=== PATIENT | male | born 1935 | race Caucasian/White ===

== ENCOUNTER 2020-12-15 13:57 | Observation (INO) | payer MEDICARE, MEDICAID ==
[~2020-12-15] VITALS: Ht 167.6 cm; Wt 76.0 kg
[~2020-12-15 13:57] MED LIST: AMLODIPINE5 MG PO; BACTRIM DS1 TAB PO; BACTROBAN TOP; BENAZEPRIL5 MG PO; CIPRO500 MG PO; FLONASE AL50 MCG/ACT; FLUARIX QUADRIV1 IN2 IM; KEFLEX500 MG PO; NO; NO HOME MEDS; ULTRAM50 M1 PO; VITAMIN B-121000 MCG PO; [UNRECOGNIZED DRUG - OTHER] EX
--- NOTE | 2020-12-15 14:00 | NUR ---
PT TO ROOM 15 VIA WHEELCHAIR. BEDSIDE TRIAGE COMPLETED
[2020-12-15 14:48] LABS: HEMATOCRIT 46.2 % (39.0-50.0); HEMOGLOBIN 14.5 g/dl (14.0-18.0); IMMATURE GRANULOCYTES 0.3 % (0.0-5.0); MEAN CELL VOLUME 91.3 fL CALC (80.0-100.0); MEAN CORPUSCULAR HGB 28.7 pG CALC (26.0-32.0); MEAN CORPUSCULAR HGB CONC 31.4 g/dL CAL (32.0-36.0); NEUT# 11.28 thou/uL (1.82-7.42); RED BLOOD COUNT 5.06 mill/uL (4.70-6.10); RED CELL DISTRI WIDTH 14.6 % (11.5-15.5)
--- NOTE | 2020-12-15 14:59 | NUR ---
two sets of blood cultures drawn.
[2020-12-15 15:04] LABS: ALBUMIN 4.1 g/dL (3.2-5.0); ALKALINE PHOSPHATASE 66 u/l (38-126); ANION GAP 15 (6-22 (CALC)); BUN 17 mg/dL (8-23); BUN/CREATININE RATIO 15 (12-20 (CALC)); CARBON DIOXIDE 27 mmol/l (22-30); CHLORIDE 98 mmol/l (95-108); CREATININE 1.1 mg/dL (0.7-1.3); GFR > 60 ML/MIN (>=60 (CALC)); GFR FOR AFR.AMER. > 60 ML/MIN (>=60 (CALC)); LIPASE 64 u/l (23-300); POTASSIUM 4.7 mmol/l (3.5-5.1); SGOT/AST 37 u/l (19-48); SODIUM 135 mmol/l (137-146); TOTAL PROTEIN 7.9 g/dL (6.3-8.2)
[2020-12-15 15:11] LABS: ACT PARTIAL THROMBO TIME 27.9 SECONDS (20.0-32.5); INTERNATIONAL NORMALIZED RATIO 1.1 RATIO (0.7-1.3); PROTHROMBIN TIME 11.3 SECONDS (9.0-12.5)
[2020-12-15 15:17] LABS: BILIRUBIN, TOTAL 1.3 mg/dL (0.0-1.4)
[2020-12-15] MEDS ORDERED: SERTRALINE50 MG PO (15:21)
[2020-12-15] MEDS ORDERED: MEGESTROL AC20 MG PO (15:22)
[2020-12-15] MEDS ORDERED: CYPROHEPTAD4 MG PO (15:23)
--- NOTE | 2020-12-15 17:01 | NUR ---
SBAR PRINTED TO FLOOR
[2020-12-15 18:00] VITALS: BP 114/70
--- NOTE | 2020-12-15 18:05 | NUR ---
PATIENT RECEIVED FROM ED AT THIS TIME. PATIENT IS CONFUSED AND ONLY ALERT TO NAME BUT WILL FOLLOW COMMANDS. PATIENT INCONTIENT OF CLEAR YELLOW URINE AT THIS TIME SKIN IS SCALY BUT NO OPEN WOUNDS NOTED. 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 APPLIED ANTHROPOLOGIST DONE LUNG RODRIGUEZ IN UPPER ARE CLEAR AND LOWER RODRIGUEZ DIMINISHED. PATIENT HAS NON-PRODUCTIVE COUGH NOTED ON ADMISSION. 02 ON AT 2 LITERS AND SPO2 IS 96%. PATIENT IS ON TELE AND CURRENTLY READING AFIB-93 HEART RATE. BP AT TIME OF ADMISSION IS 114/70. PATIENT WHEN ASKED IF HE HAS PAIN STATES "NO". CALL LIGHT IS WITHIN REACH SIDERAILS UP X 2 BEDALARM ACTIVATED AT THIS TIME.
[2020-12-15 19:40] VITALS: BP 117/69
--- NOTE | 2020-12-15 20:18 | NUR ---
PT MEDICATED ORDERS PROVIDE. PT IS EATING HIS DINNER TRAY, JUST BROUGHT UP FROM ED. SPORTS NUTRITIONIST SET IT UP FOR HIM. PT DENIES DISTRESS AT THIS TIME. I ASSISTED HIM ADJUSTING THE TV FOR VOLUME AND REORIENTED HIM TO THE CALL LIGHT SYSTEM. PT LEFT IN HIGH FOWLERS EATING AND WATCHING TV.
--- NOTE | 2020-12-15 21:00 | NUR ---
PT SLEEPING, I ASKED IF HE WANTED MORE OF HIS DINNER, HE ATE SMALL AMOUNT, HE NODDED YES SO I ASSISTED HIM TO EAT, I ENCOURAGED HIM TO FEED HIMSELF, BUT HE DID NOT CONTINUE ON HIS OWN.
[2020-12-15 23:56] VITALS: BP 121/76
--- NOTE | 2020-12-16 02:28 | NUR ---
PT IS SLEEPING, NO S/O DISTRESS NOTED.
[2020-12-16 05:02] VITALS: BP 110/69
[2020-12-16 05:53] LABS: ANION GAP 13 (6-22 (CALC)); BUN 17 mg/dL (8-23); BUN/CREATININE RATIO 16 (12-20 (CALC)); CARBON DIOXIDE 29 mmol/l (22-30); CHLORIDE 98 mmol/l (95-108); CREATININE 1.1 mg/dL (0.7-1.3); GFR > 60 ML/MIN (>=60 (CALC)); GFR FOR AFR.AMER. > 60 ML/MIN (>=60 (CALC)); POTASSIUM 3.9 mmol/l (3.5-5.1); SODIUM 135 mmol/l (137-146)
[2020-12-16 07:01] VITALS: BP 109/73
--- NOTE | 2020-12-16 07:18 | NUR ---
SHIFT CHANGE REPORT, PT SLEEPING AND SNORING, O2 @ 2L VIA C IN PLACE, TELE MONITOR IN PLACE, BREATHING ENEN AND NON-LABORED, NO SIGN DISCOMFORT, CALL MORENO IN REACH.
--- NOTE | 2020-12-16 09:29 | NUR ---
Patient is screened for rehab intervention and it is felt he may benefit from PT and ST consults
--- NOTE | 2020-12-16 09:31 | NUR ---
AWAKE AND ALERT, ATE MEAL AND HAD AM BED BATH. INFORMED PF PROCEDURE, ASSISTED TO W/C AND TRANSPORTED OFF UNIT FOR PROCEDURE @ 0912, JUST RETURNED TO UNIT AND ASSISTED TO BED, CALL MORENO IN REACH.
[2020-12-16 10:38] VITALS: BP 123/77
--- NOTE | 2020-12-16 12:30 | NUR ---
CONSULT WITH ANDROID IOS DEVELOPER TODAY TO DISCUSS CONCERNS WITH MEALS, CONSISTENCY CHANGED TO SOFT MECHANICAL SOFT PT IS ENDENTULOUS, WILL CONTINUE TO MONITOR.
--- NOTE | 2020-12-16 12:44 | NUR ---
SITTING IN HIGH FOWLERS POSITION IN BED, SET UP FOR MEAL BUT FALLS ASLEEP BETWEEN MOUTHFULS AND HAS TO BE AWAKENED AND REORIENTED, ABLE TO FEED SELF WITH CONTINUOUS SUPERVISION.
[2020-12-16 14:50] VITALS: BP 102/68
--- NOTE | 2020-12-16 15:32 | NUR ---
RESTING IN SUPINE POSITION, VISITOR CAME AND LEFT, SLEEPING BUT AROUSES TO VERBAL STIMULI AND RESPONDS TO COMMANDS, CALL MORENO IN REACH.
--- NOTE | 2020-12-16 19:15 | NUR ---
PT RESTING QUIETLY WITH EYES CLOSED, PT NOTED TO HAVE SHALLOW BREATHING, NO S/S OF DISTRESS NOTED. O2 @ 2L VIA NC CONTINUES. IV SITE REMAINS TO LFA, FLUSHES EASILY. AROUSES TO VOICE BUT FALLS BACK TO SLEEP. WILL MONITOR.
[2020-12-16 20:00] VITALS: BP 105/68
--- NOTE | 2020-12-16 22:43 | NUR ---
PT DOING WELL THIS EVENING, BREATHING EVEN AND UNLABORED, NO C/O PAIN AT THIS TIME. IV REMAINS TO LAC # 20, FLUSHES EASILY, SALINE LOCKED. PT RECEIVED SQ LOVENOX PER ORDER, TOLERATED WELL. NO SKIN CONCERNS NOTED AT THIS TIME. PT IS ALERT AND ORIENTED X1 ONLY. AROUSABLE TO VOICE BUT FALLS ASLEEP QUICKLY. WILL MONITOR.
[2020-12-17] VITALS: BP 141/79
--- NOTE | 2020-12-17 00:48 | NUR ---
PT RESTING QUIETLY IN BED WITH EYES CLOSED, NO COMPLAINTS AT THIS TIME. NO S/S OF DISTRESS. BREATHING REMAINS EVEN AND UNLABORED. WILL MONITOR.
[2020-12-17 04:00] VITALS: BP 118/76
--- NOTE | 2020-12-17 04:26 | NUR ---
PT RESTING QUIETLY. BREATHING EVEN AND UNLABORED. NO COMPLAINTS VOICED. NO S/S OF DISTRESS. BED IN LOWEST POSITION, CALL LIGHT WITHIN REACH. FREQUENT ROOM CHECKS TO MONITOR FOR SAFETY. WILL CONTINUE TO MONITOR.
[2020-12-17 05:24] LABS: HEMATOCRIT 44.7 % (39.0-50.0); MEAN CORPUSCULAR HGB 28.8 pG CALC (26.0-32.0); MEAN CORPUSCULAR HGB CONC 31.3 g/dL CAL (32.0-36.0); RED BLOOD COUNT 4.86 mill/uL (4.70-6.10); RED CELL DISTRI WIDTH 14.6 % (11.5-15.5)
[2020-12-17 05:41] LABS: ALBUMIN 3.6 g/dL (3.2-5.0); ALKALINE PHOSPHATASE 63 u/l (38-126); ANION GAP 13 (6-22 (CALC)); BILIRUBIN, TOTAL 0.8 mg/dL (0.0-1.4); BUN 17 mg/dL (8-23); BUN/CREATININE RATIO 18 (12-20 (CALC)); CARBON DIOXIDE 28 mmol/l (22-30); CHLORIDE 100 mmol/l (95-108); GFR > 60 ML/MIN (>=60 (CALC)); GFR FOR AFR.AMER. > 60 ML/MIN (>=60 (CALC)); POTASSIUM 4.1 mmol/l (3.5-5.1); SGOT/AST 30 u/l (19-48); SODIUM 138 mmol/l (137-146); TOTAL PROTEIN 6.9 g/dL (6.3-8.2)
[2020-12-17 07:49] VITALS: BP 116/77
--- NOTE | 2020-12-17 08:00 | NUR ---
PATIENT IS RESTING IN BED IN SEMI-LEON. PATIENT ALERT TO SELF. PATIENT REQUESTED WATER. PO FLUIDS PROVIDED. NO S/S OF DISTRESS NOTED. O2 AT 2L VIA NC. TELE IN PLACE. PATIENT DENIES ANY OTHER NEEDS. CALL LIGHT IN REACH AND BED ALARM IN PLACE.
[2020-12-17 10:58] VITALS: BP 104/57
--- NOTE | 2020-12-17 12:45 | NUR ---
PATIENT IS RESTING IN BED WITH NO S/S OF DISTRESS NOTED. CALL LIGHT IN REACH.
[2020-12-17 14:45] VITALS: BP 102/72
--- NOTE | 2020-12-17 15:52 | NUR ---
PATIENT IS SITTING IN THE RECLINER DRINKING SODA. PATIENT DENIES NEEDS AT THIS TIME. CALLL LIGHT IN REACH.
--- NOTE | 2020-12-17 19:00 | NUR ---
pt in recliner chair eating supper and able to make needs known. respiration even and non labored. pt has oxygen therapy in place at 2ln[facility]. will continue to observe
[2020-12-17 20:00] VITALS: BP 123/75
[2020-12-18] VITALS: BP 125/84
--- NOTE | 2020-12-18 | NUR ---
PT IN BED WITH EYES CLOSED WITH NO S/S OF DISTRESS NOTED. MEDICATIONS GIVEN AND TOLERATED WELL. OXYGEN THERAPY CONTINUES IN PLACE WITH NO RESPIRATORY DISTRESS NOTED. CALL LIGHT IS WITHIN REACH. WILL CONTINUE TO OBSERVE.
[2020-12-18 04:00] VITALS: BP 127/74; BP 127/84
--- NOTE | 2020-12-18 04:20 | NUR ---
PT IN BED WTH EYES CLOSED. NO S/S OF DITRESS NOTED. EASILY AROUSED. INCONTINENCE CARE PROVIDED AND PT WAS REPOSITIONED IN BED. HOB ELEVATED AND CALL LIGHT IS WITHIN REACH. WILL CONTINUE TO OBSERVE.
[2020-12-18 07:23] VITALS: BP 129/82
--- NOTE | 2020-12-18 07:26 | NUR ---
PATIENT IS IN SEMI-FOWLERS IN BED RESTING. ASSESSMENT DONE.PATIENT IS ALERT TO SELF. PATIENT STATED PAIN IN BACK. MEDICATED PATIENT WITH TYLENOL. WATER PROVIDED. O2 AT 2L VIA NC. LUNGS SOUND DIMINISHED/COARSE. TELE IN PLACE. DENIES ANY OTHER NEEDS AT THIS TIME. BED ALARM IN PLACE AND CALL LIGHT IN REACH.
[2020-12-18 10:56] VITALS: BP 105/65
[2020-12-18] MEDS ORDERED: AMLODIPINE BESYL5 MG PO (11:08)
[2020-12-18] MEDS ORDERED: ZPAK PO (11:10)
--- NOTE | 2020-12-18 11:45 | NUR ---
PATIENT IS EATING HIS LUNCH WITH NO S/S OF DISTRESS NOTED. PATIENT DENIES NEEDS CALL LIGHT IN REACH.
--- NOTE | 2020-12-18 12:15 | NUR ---
REPORT GIVEN TO MADELIN.
--- NOTE | 2020-12-18 14:34 | NUR ---
Discharge instructions given. Patient verbalizes understanding of same. Discharged in stable condition via Wheelchair to [facility] with staff. All belongings sent with pt.
--- NOTE | 2020-12-18 14:44 | NUR ---
CALL SON TO COME BACK TO [employer]. HE SAID HE WILL BE COMING.
== END 2020-12-18 14:34 | disposition home or self-care (01) ==
LOC: ED 13:57 → ED-I 16:37 → ED 16:52 → MS2 16:53
PROVIDERS: ADMIT Internal Medicine; ATTEND Internal Medicine
DX: J18.9 Pneumonia, unspecified organism (principal); R09.02 Hypoxemia; I11.0 Hypertensive heart disease with heart failure; I50.9 Heart failure, unspecified; F03.90 Unspecified dementia, unspecified severity, without behavioral disturbance, psychotic disturbance, mood disturbance, and anxiety; F32.9 Major depressive disorder, single episode, unspecified; Z20.822 Contact with and (suspected) exposure to COVID-19
CPT/HCPCS: J1650

== ENCOUNTER 2021-05-25 10:08 | Inpatient (IN) | payer MEDICARE, MEDICAID ==
[~2021-05-25] VITALS: Ht 167.6 cm; Wt 66.0 kg
[~2021-05-25 10:08] MED LIST changes: +AMLODIPINE BESYL5 MG PO; +CYPROHEPTAD4 MG PO; +MEGESTROL AC20 MG PO; +SERTRALINE50 MG PO; +ZPAK PO
--- NOTE | 2021-05-25 10:10 | NUR ---
TO ROOM BY EMS FOR TRIAGE.
[2021-05-25 10:36] LABS: HEMATOCRIT 46.8 % (39.0-50.0); HEMOGLOBIN 14.7 g/dl (14.0-18.0); IMMATURE GRANULOCYTES 0.2 % (0.0-5.0); MEAN CELL VOLUME 93.2 fL CALC (80.0-100.0); MEAN CORPUSCULAR HGB 29.3 pG CALC (26.0-32.0); MEAN CORPUSCULAR HGB CONC 31.4 g/dL CAL (32.0-36.0); NEUT# 8.54 thou/uL (1.82-7.42); RED BLOOD COUNT 5.02 mill/uL (4.70-6.10); RED CELL DISTRI WIDTH 14.5 % (11.5-15.5)
[2021-05-25 10:48] LABS: ALBUMIN 3.8 g/dL (3.2-5.0); ALKALINE PHOSPHATASE 58 u/l (38-126); AMYLASE 135 u/l (30-110); ANION GAP 17 (6-22 (CALC)); BUN 18 mg/dL (8-23); BUN/CREATININE RATIO 16 (12-20 (CALC)); CARBON DIOXIDE 26 mmol/l (22-30); CHLORIDE 98 mmol/l (95-108); CREATININE 1.1 mg/dL (0.7-1.3); GFR > 60 ML/MIN (>=60 (CALC)); GFR FOR AFR.AMER. > 60 ML/MIN (>=60 (CALC)); LIPASE 205 u/l (23-300); POTASSIUM 3.6 mmol/l (3.5-5.1); SODIUM 137 mmol/l (137-146); TOTAL PROTEIN 7.6 g/dL (6.3-8.2)
[2021-05-25 10:53] LABS: BILIRUBIN, TOTAL 0.4 mg/dL (0.0-1.4); SGOT/AST 104 u/l (19-48)
[2021-05-25 10:58] LABS: D-DIMER 0.92 mg/L (0.19-0.60)
[2021-05-25 11:13] LABS: ACT PARTIAL THROMBO TIME 28.1 SECONDS (20.0-32.5); INTERNATIONAL NORMALIZED RATIO 1.1 RATIO (0.7-1.3); PROTHROMBIN TIME 11.6 SECONDS (9.0-12.5)
--- NOTE | 2021-05-25 11:16 | NUR ---
IV MEDS INFUSING WITHOUT DIFFICULTY. STABLE ON MONITOR. BED IN LOW POSITION, CALL LIGHT WITHIN REACH.
--- NOTE | 2021-05-25 12:06 | NUR ---
IV MEDS CONTINUE TO INFUSE WITHOUT DIFFICULTY. STABLE ON MONITOR. NO CONCERNS VOICED.
[2021-05-25 12:36] LABS: URINE BILIRUBIN - DIPSTICK NEGATIVE (NEGATIVE); URINE BLOOD DIPSTICK MODERATE (NEGATIVE); URINE COLOR YELLOW; URINE GLUCOSE - DIPSTICK NEGATIVE (NEGATIVE); URINE KETONE TRACE mg/dL (NEGATIVE); URINE LEUK ESTERASE NEGATIVE (NEGATIVE); URINE PROTEIN - DIPSTICK 30 mg/dL (NEG-TRACE); URINE SPECIFIC GRAVITY >=1.030; URINE UROBILINOGEN - DIPSTICK 0.2 E.U./dL (0.2)
[2021-05-25 12:37] LABS: URINE NITRITE - DIPSTICK NEGATIVE (Negative)
[2021-05-25 12:39] LABS: URINE EPITHELIAL CELLS FEW EPI/hpf (0-FEW)
[2021-05-25 12:40] LABS: URINE MUCUS MODERATE hpf (NONE-FEW)
--- NOTE | 2021-05-25 13:05 | NUR ---
NO CHANGES. PENDING ADMISSION.
--- NOTE | 2021-05-25 14:15 | NUR ---
PT APPEARS TO BE RESTING WITH EYES CLOSED, NO DISTRESS NOTED. STOUT DRAINING YELLOW URINE.
--- NOTE | 2021-05-25 14:56 | NUR ---
REPORT GIVEN TO CARO FLORES ON [facility]. PT ADMITTED TO [facility].
[2021-05-25 15:26] VITALS: BP 110/71
--- NOTE | 2021-05-25 15:50 | NUR ---
86 year old male arrived to ER from [facility]--admitted to floor via strecther accompanied by ER staff with diagnosis of COVID pneumonia, hx of dementia, hypertension, arthiritis, and skin cancer. Patient is lethargic, arouses to touch, verbal, yet very difficult to understand, garbled speech, needs anticipated and met per staff. Meds not attempted as of yet, however, it appears meds will need to be crushed for safety. Inc of bowel--care provided prn. Molina cath patent and draining pale yellow urine to BSB without diffciulty. Total assist with all transfers--bedfast. No apparent distress noted--resting soundly. To receive telemetry monitoring. PIV site patent to RFA--flushes well--site unremarkable. To receive IV ABT therapy as ordered as well as NS @ 75ml/hr times 1 liter. O2 @ 5L/min BNC--sats 94-95%--labored breathing. Cardiac/low fat/2 gram Na diet. NKDA. Full Code. Last BM yesterday. Skin assessment completed--only mild redness noted to leeann buttocks at this time. Unable to orient to room--will anticipate needs per staff ad josemanuel. Will cont to monitor for any further changes.
[2021-05-25 19:00] VITALS: BP 123/80
--- NOTE | 2021-05-25 20:00 | NUR ---
PATIENT AWAKE IN BED. NO COMPLAINTS. RESPIRATIONS NONLOABORED. O2 5L. ON TELEMETRY AFIB. ASSESSMENT COMPLETED AND CHARTED. BED IN LOW POSITION. CALL LIGHT WITHIN REACH. FALL PRECAUTIONS MAINTAINED.
[2021-05-26] VITALS: BP 107/64
--- NOTE | 2021-05-26 01:59 | NUR ---
RESTING QUIETLY. WATCHING TV. NO COMPLAINTS.
[2021-05-26 04:00] VITALS: BP 107/65
--- NOTE | 2021-05-26 04:31 | NUR ---
LAB IN TO DRAW LABS. NO ACUTE DISTRESS OBSERVED.
[2021-05-26 05:42] LABS: HEMATOCRIT 41.9 % (39.0-50.0); HEMOGLOBIN 13.1 g/dl (14.0-18.0); IMMATURE GRANULOCYTES 0.1 % (0.0-5.0); MEAN CELL VOLUME 92.5 fL CALC (80.0-100.0); MEAN CORPUSCULAR HGB 28.9 pG CALC (26.0-32.0); MEAN CORPUSCULAR HGB CONC 31.3 g/dL CAL (32.0-36.0); NEUT# 5.29 thou/uL (1.82-7.42); RED BLOOD COUNT 4.53 mill/uL (4.70-6.10); RED CELL DISTRI WIDTH 14.7 % (11.5-15.5)
[2021-05-26 06:06] LABS: ALKALINE PHOSPHATASE 52 u/l (38-126); ANION GAP 9 (6-22 (CALC)); BILIRUBIN, TOTAL 0.3 mg/dL (0.0-1.4); BUN 13 mg/dL (8-23); BUN/CREATININE RATIO 16 (12-20 (CALC)); C-REACTIVE PROTEIN 6.8 mg/dL (0-0.9); CARBON DIOXIDE 29 mmol/l (22-30); CHLORIDE 104 mmol/l (95-108); CREATININE 0.8 mg/dL (0.7-1.3); GFR > 60 ML/MIN (>=60 (CALC)); GFR FOR AFR.AMER. > 60 ML/MIN (>=60 (CALC)); POTASSIUM 3.6 mmol/l (3.5-5.1); SGOT/AST 99 u/l (19-48); SODIUM 137 mmol/l (137-146)
[2021-05-26 06:19] LABS: ALBUMIN 2.7 g/dL (3.2-5.0); TOTAL PROTEIN 5.9 g/dL (6.3-8.2)
--- NOTE | 2021-05-26 08:00 | NUR ---
PATIENT ALERT, VERBAL WITH INT CONFUSION, ABLE TO MAKE NEEDS KNOWN. ABLE TO JOSSELINE MEDS WELL WHOLE THIS AM. CONT ON IV ABT THERAPY RELATED TO COVID PNEUMONIA WITH NO SIDE EFFECTS NOTED--AFBERILE. PIV SITE PATENT TO RFA--FLUSHES WELL--SITE UNREMARKABLE. NS INFUSING @ 75ML/HR WITHOUT DIFFICULTY--TOLERATING FLUIDS WELL. INC OF BOWEL--CARE PROVIDED PRN. STOUT PATENT AND DRAINING PALE YELLOW URINE TO BSB WITHOUT DIFFICULTY. MAX ASSIST OF 2 PEOPLE WITH TRANSFERS. TELEMETRY IN PLACE WITH A-FIB @ 96. O2 @ 5L/MIN BNC. SPEECH THERAPY TO SEE PATIENT THIS AM DUE TO SOME CHEWING AND SWALLOWING ISSUES SINCE PATIENT CAME TO FACILTIY WITHOUT DENTURES THAT HE NORMALLY USES TO EAT ON A DAILY BASIS. NO APPARENT DISTRESS NOTED. WILL CONT TO MONITOR FOR ANY FURTHER CHANGES.
--- NOTE | 2021-05-26 08:04 | NUR ---
Pt screened by TIME RECORDER. Discussed pt with APRN. Dash Bowling to re-assess patient this morning. If PO has not improved consider a swallow evaluation if medical team agrees.
[2021-05-26 10:45] VITALS: BP 101/65
--- NOTE | 2021-05-26 12:00 | NUR ---
PATIENT RESTING SOUNDLY IN BED WITH EYES CLOSED AT THIS TIME. ST EVALUATED THIS AM--PATIENT PLACED ON A FULL LIQUID DIET A PRECAUTION. PIV SITE CHANGED THIS AM WELL--EMS SITE WAS POSITIONAL AND KEPT OCCLUDING--SITE TO RFA DCD AND A 22 GAUGE PLACED IN LEFT FOREARM TIMES 1 ATTEMPT--PATIENT TOLERATED PROCEDURE WELL. NS INFUSING WITHOUT DIFFICULTY @ 75ML/HR--TOLERATING FLUIDS WELL. TELEMETRY REMAINS IN PLACE WITH A-FIB @ 87. NO DISTRESS NOTED. WILL CONT TO MONITOR FOR ANY FURTHER CHANGES.
[2021-05-26 15:01] VITALS: BP 113/75
--- NOTE | 2021-05-26 16:00 | NUR ---
PATIENT CONTINUES TO REST SOUNDLY IN BED WITH EYES CLOSED AT THIS TIME. PIV SITE PATENT TO LFA--FLUSHES WELL--SITE UNREMARKABLE. NS INFUSING @ 75ML/HR WITHOUT DIFFICULTY. O2 @ 5L/MIN BNC--NO DISTRESS NOTED. REMAINS ON FULL LIQUID DIET--TOLERATING WELL. WILL CONT TO MONITOR FOR ANY FURTHER CHANGES.
--- NOTE | 2021-05-26 17:01 | NUR ---
Pt presents with generalized weakness, confusion, and difficulty bringing water cup to mouth Pt unable to sit up and reach forward to adjust socks. Pt would benefit from skilled OT intervention during stay if medical team agrees.
[2021-05-26 19:37] VITALS: BP 113/41
--- NOTE | 2021-05-26 20:00 | NUR ---
PATIENT SEMI-FOWLERS, NO SPEAKING, GROGGY, ON TELEMETRY, RESPIRATIONS EVEN AND SHALLOW, IVF INFUSING. NO COMPLAINTS. ASSESSMENT COMPLETED AND CHARTED. BED IN LOW POSITION. CALL LIGHT WITHIN REACH.
[2021-05-27] VITALS: BP 114/72
--- NOTE | 2021-05-27 | NUR ---
NO CHANGE IN PATIENT'S CONDITION. RESPIRATIONS EVEN. BED IN LOW POSITION. CALL LIGHT WITHIN REACH.
--- NOTE | 2021-05-27 04:30 | NUR ---
RESPIRATIONS EVEN AND SHALLOW. NO COMPLAINTS. IVF INFUSING ORDERED. BED IN LOW POSITION. CALL LIGHT WITHIN REACH.
[2021-05-27 04:45] VITALS: BP 92/59
[2021-05-27 05:16] LABS: HEMATOCRIT 46.1 % (39.0-50.0); HEMOGLOBIN 14.4 g/dl (14.0-18.0); IMMATURE GRANULOCYTES 0.3 % (0.0-5.0); MEAN CELL VOLUME 93.7 fL CALC (80.0-100.0); MEAN CORPUSCULAR HGB 29.3 pG CALC (26.0-32.0); MEAN CORPUSCULAR HGB CONC 31.2 g/dL CAL (32.0-36.0); NEUT# 2.01 thou/uL (1.82-7.42); RED BLOOD COUNT 4.92 mill/uL (4.70-6.10); RED CELL DISTRI WIDTH 14.7 % (11.5-15.5)
[2021-05-27 05:37] LABS: ALBUMIN 2.7 g/dL (3.2-5.0); ALKALINE PHOSPHATASE 48 u/l (38-126); ANION GAP 12 (6-22 (CALC)); BILIRUBIN, TOTAL 0.2 mg/dL (0.0-1.4); BUN 16 mg/dL (8-23); BUN/CREATININE RATIO 25 (12-20 (CALC)); C-REACTIVE PROTEIN 6.5 mg/dL (0-0.9); CARBON DIOXIDE 26 mmol/l (22-30); CHLORIDE 106 mmol/l (95-108); CREATININE 0.6 mg/dL (0.7-1.3); GFR > 60 ML/MIN (>=60 (CALC)); GFR FOR AFR.AMER. > 60 ML/MIN (>=60 (CALC)); POTASSIUM 3.9 mmol/l (3.5-5.1); SGOT/AST 97 u/l (19-48); SODIUM 139 mmol/l (137-146); TOTAL PROTEIN 5.9 g/dL (6.3-8.2)
--- NOTE | 2021-05-27 08:00 | NUR ---
PATIENT LETHARGIC, YET AROUSES TO SPEECH AND TOUCH, NOT ABLE TO MAKE NEEDS KNOWN--NEEDS ANTICIPATED AND MET PER STAFF. ABLE TO TOLERATE MEDS WELL WHOLE. REMAINS ON FULL LIQUID DIET--TOLERATING WELL. INC OF BOWEL--CARE PROVIDED PRN. STOUT PATENT AND DRAINING PALE YELLOW URINE TO BSB WITHOUT DIFFICULTY. MAX ASSIST WITH ALL TRANSFERS. NO APPARENT DISTRESS NOTED. PIV SITE PATENT TO LFA--FLUSHES WELL--SITE UNREMARKABLE. NS INFUSING @ 75ML/HR WITHOUT DIFFICULTY. CONT ON ABT THERAPY RELATED TO COVID PNEUMONIA WITH NO SIDE EFFECTS NOTED--AFBERILE. TELEMETRY IN PLACE WITH A-FIB @ 96. O2 @ 5L/MIN BNC. WILL CONT TO MONITOR FOR ANY FURTHER CHANGES.
[2021-05-27 10:52] VITALS: BP 98/61
--- NOTE | 2021-05-27 12:00 | NUR ---
PATIENT RESTING SOUNDLY IN BED WITH EYES CLOSED AT THIS TIME. PIV SITE PATENT TO LFA--FLUSHES WELL--SITE UNREMARKABLE. NS INFUSING WELL @ 75ML/HR WITHOUT DIFFICULTY. TELEMETRY IN PLACE WITH A-FIB @ 95. STOUT PATENT AND DRAINING PALE YELLOW URINE TO BSB WITHOUT DIFFICULTY. O2 @ 5L/MIN BNC. CONTINUES TO TOLERATE FULL LIQUID DIET. WILL CONT TO MONITOR FOR ANY FURTHER CHANGES.
[2021-05-27 15:00] VITALS: BP 99/44
--- NOTE | 2021-05-27 16:00 | NUR ---
NO APPARENT DISTRESS NOTED THUS FAR IN SHIFT--PIV SITE REMAINS PATENT--FLUSHES WELL--SITE UNREMARKABLE--NS INFUSING WELL @ 75ML/HR WITHOUT ANY DIFFICULTY--TOLERATING IV ABT THERAPY WELL RELATED TO COVID PNEUMONIA WITH NO SIDE EFFECTS NOTED---AFEBRILE. TELEMETRY IN PLACE WITH A-FIB @ 104. O2 2 5L/MIN BNC. TOLERATING FULL LIQUID DIET--WILL CONT TO MONITOR FOR ANY FURTHER CHANGES.
[2021-05-27 19:00] VITALS: BP 110/77
--- NOTE | 2021-05-27 20:25 | NUR ---
PT ASSESSMENT COMPLETED AT THIS TIME. PT LOC TO SELF. BED ALARM IS ON. OXYGEN SAT 94% ON 02NC HIGHFLOW @5L. WILL CONTINUE TO MONITOR. BREATHING NON-LABORED AT THIS TIME. WHEN ASKED FOR ANY NEEDS FOR COMFORT, REQUESTED COFFEE, PROVIDED. PT APPEARS ABLE TO SELF FEED IF CLOSE IN FRONT OF HIM ON BST. DRINKS POSITIONED FOR SELF CARE IN BED. STOUT CATH DRAINING LIGHT MILAN URINE TO GRAVITY AND PT REPOSITIONED AT THIS TIME AND CHECKED FOR SOILING OF INCONTINENT URINE, CLEAN.
[2021-05-28 00:30] VITALS: BP 100/68
--- NOTE | 2021-05-28 04:19 | NUR ---
V/S ASSESSED AND PT ASSISTED DRINKING WATER. WEIGHT BY BED OBTAINED AND STOUT CATHETER URINE OUTPUT EMPTIED OF 500CC OF DARK YELLOW CLEAR URINE. ASSISTED PT TO REPOSITION. OXYGEN SAT LEVELS @94% ON 5L 02NC HIGHFLOW.
[2021-05-28 04:30] VITALS: BP 97/69
[2021-05-28 05:38] LABS: IMMATURE GRANULOCYTES 0.3 % (0.0-5.0); MEAN CELL VOLUME 92.8 fL CALC (80.0-100.0); MEAN CORPUSCULAR HGB 28.9 pG CALC (26.0-32.0); MEAN CORPUSCULAR HGB CONC 31.1 g/dL CAL (32.0-36.0); NEUT# 4.63 thou/uL (1.82-7.42); RED BLOOD COUNT 4.85 mill/uL (4.70-6.10); RED CELL DISTRI WIDTH 14.7 % (11.5-15.5)
[2021-05-28 06:03] LABS: ALBUMIN 2.4 g/dL (3.2-5.0); ALKALINE PHOSPHATASE 43 u/l (38-126); ANION GAP 8 (6-22 (CALC)); BILIRUBIN, TOTAL 0.2 mg/dL (0.0-1.4); BUN 18 mg/dL (8-23); BUN/CREATININE RATIO 30 (12-20 (CALC)); CARBON DIOXIDE 26 mmol/l (22-30); CHLORIDE 107 mmol/l (95-108); CREATININE 0.6 mg/dL (0.7-1.3); GFR > 60 ML/MIN (>=60 (CALC)); GFR FOR AFR.AMER. > 60 ML/MIN (>=60 (CALC)); POTASSIUM 3.7 mmol/l (3.5-5.1); SGOT/AST 67 u/l (19-48); SODIUM 137 mmol/l (137-146); TOTAL PROTEIN 5.3 g/dL (6.3-8.2)
--- NOTE | 2021-05-28 06:55 | NUR ---
REPORT RECEIVED FROM CARO MCCAULEY
[2021-05-28 09:35] VITALS: BP 107/74
--- NOTE | 2021-05-28 09:35 | NUR ---
PT RESTING IN SEMI FOWLERS POSITION,A&O TO SELF ONLY;VS OBTAINED AND ASSESSMENT COMPLETED;PT DENIES ANY CURRENT PAIN OR DISCOMFORTS,PAIN SCALE AND REPORTING EDUCATED;RESPIRATIONS SHALLOW ON O2 @ 5L VIA NC, O2 SATS 98-99% AND OXYGEN TITRATED TO 4L AT THIS TIME;NON-PRODUCTIVE COUGH;ABDOMEN SOFT ON PALPATION AND ACTIVE IN ALL 4 QUADRANTS;STOUT CATHETER PATENT DRAINING TO GRAVITY WITH EASE;WEAK PEDAL PULSES;GENERALIZED BRUISING NOTED BUT SKIN OTHERWISE INTACT;TELE MONITORING IN PLACE;#22G TO LFA INFUSING NS @ 75ML/HR,SITE APPEARS HEALTHY;PT REMAINS IN AIR/CONTACT PRECAUTIONS DUE TO COVID19 DX;PT ENCOURAGED TO CALL FOR ASSISTANCE IF NEEDED;FALL PRECAUTIONS IN PLACE WITH BED IN THE LOWEST POSITION AND CALL LIGHT IN REACH;WILL CONTINUE TO MONITOR
[2021-05-28 10:54] VITALS: BP 104/60
--- NOTE | 2021-05-28 11:45 | NUR ---
PT APPEARS TO BE SLEEPING IN SEMI FOWLERS POSITION;RESPIRATIONS SHALLOW ON O2 @ 4L HF NC;NO S/S OF DISTRESS NOTED;TELE MONITORING IN PLACE;IV SITE PATENT INFUSING NS PER ORDER;ALL SAFETY PRECAUTIONS REMAIN IN PLACE WITH BED IN THE LOWEST POSITION AND BED ALARM ON FOR SAFETY;CALL LIGHT IN REACH;WILL CONTINUE TO MONITOR
--- NOTE | 2021-05-28 12:12 | NUR ---
AT BEDSIDE DISCUSSING POC WITH PT.
--- NOTE | 2021-05-28 14:22 | NUR ---
PT O2 SATS 95% ON 4L HF NC, PT OXYGEN TITRATED AT THIS TIME TO 3L;WILL CONTINUE TO MONITOR FOR EFFECTIVENESS
[2021-05-28 15:00] VITALS: BP 106/67
--- NOTE | 2021-05-28 15:40 | NUR ---
PT RESTING IN SEMI FOWLERS POSITION;RESPIRATIONS SHALLOW ON O2 @ 3L VIA NC;PT DENIES ANY CURRENT PAIN OR DISCOMFORTS;TELE MONITORING IN PLACE;IV SITE PATENT TO LFA AND ABX HUNG AT THIS TIME;PT DENIES ANY ADDITIONAL NEEDS AND IS ENCOURAGED TO CALL FOR ASSISTANCE IF NEEDED;FALL PRECAUTIONS IN PLACE WITH CALL LIGHT IN REACH;WILL CONTINUE TO MONITOR
--- NOTE | 2021-05-28 17:45 | NUR ---
PT O2 SATS 97% ON O2 @ 3L VIA NC,OXYGEN TITRATED TO 2L AT THIS TIME;WILL CONTINUE TO MONITOR
[2021-05-28 18:00] VITALS: BP 111/74
--- NOTE | 2021-05-28 20:35 | NUR ---
ENTERED THE ROOM TO FIND PATIENT SITTING UP IN THE BED IN HIGH FOWLERS WITH FOOD TRAY IN FRONT OF HIM CLOSE, HE RESONDED SURPRISED IF HE DID NOT KNOW IT WAS THERE. I ASSISTED HIM TO EAT HALF OF HIS APPLESAUCE AND HE DRANK 1/4 OF HIS ENSURE. REFUSED THE REST. FIELD GAUGER NOTIFIED THAT THE PT IS A DEFINATE FEED WITH FULL ASSISTANCE. VERBALIZED UNDERSTANDING. NO S/O DISTRESS NOTED. IT WAS ALSO NOTED THAT THE PT HAD PLACED HIS OXYGEN ON HIS FOREHEAD, O2 SATS ASSESSED W/OUT THE OXYGEN AT THIS TIME, 93% ON RA. OXYGEN REPLACED @2L FOR SUPPORT AT THIS TIME. LUNG SOUNDS ARE DIM/COURSE. WET SOUNDING COUGH AT THIS TIME. STOUT CATH DRAINING TO GRAVITY DARK YELLOW CLEAR URINE. PT DENIED ANY NEEDS. TV PLACED ON FOR COMFORT MEASURES AND ENTERTAINMENT. CALL LIGHT IS IN HIS HAND AND HE WAS REORIENTED TO ITS USE. BED ALARM STILL ON.
[2021-05-29] VITALS: BP 107/75
--- NOTE | 2021-05-29 05:33 | NUR ---
OXYGEN SAT LEVELS ASSESSED @91% ON RA AND 94% ON 2LNC HIGHFLW
[2021-05-29 05:38] VITALS: BP 101/62
[2021-05-29 05:39] LABS: HEMATOCRIT 44.4 % (39.0-50.0); IMMATURE GRANULOCYTES 0.3 % (0.0-5.0); MEAN CELL VOLUME 91.9 fL CALC (80.0-100.0); MEAN CORPUSCULAR HGB CONC 31.5 g/dL CAL (32.0-36.0); NEUT# 5.42 thou/uL (1.82-7.42); RED BLOOD COUNT 4.83 mill/uL (4.70-6.10); RED CELL DISTRI WIDTH 14.7 % (11.5-15.5)
[2021-05-29 05:58] LABS: ANION GAP 8 (6-22 (CALC)); BUN 17 mg/dL (8-23); BUN/CREATININE RATIO 33 (12-20 (CALC)); CARBON DIOXIDE 26 mmol/l (22-30); CHLORIDE 108 mmol/l (95-108); CREATININE 0.5 mg/dL (0.7-1.3); GFR > 60 ML/MIN (>=60 (CALC)); GFR FOR AFR.AMER. > 60 ML/MIN (>=60 (CALC)); POTASSIUM 3.6 mmol/l (3.5-5.1); SODIUM 139 mmol/l (137-146)
[2021-05-29 08:38] VITALS: BP 103/68
--- NOTE | 2021-05-29 08:45 | NUR ---
PT COVID + ON 2L OF 02. ALERT TO SELF. VITALS AND ASSESSMENT COMPLETED. PT S1 ANS S2 HEARD UPON ASCULTATION. LUNGS CLEAR. BOWELS ACTIVE IN ALL 4 QUADS. SKIN WARM AND DRY. PT PEDAL PULSES STRONG. STOUT CATHETER DRAINING TO GRAVITY. IV PATENT AND HEALTHY. NO PAIN INDICATED. NO DISTRESS NOTED. CALL LIGHT WITHIN REACH. BED ALARM ON FOR PTS SAFETY.
[2021-05-29 10:36] VITALS: BP 101/62
--- NOTE | 2021-05-29 12:00 | NUR ---
PT IN BED. O2 OFF WHEN WENT IN THERE. HE WAS STATING 91 WITHOUT IT ON. I PUT BACK ON. NO DISTRESS NOTED. CALL LIGHT WITHIN REACH.
--- NOTE | 2021-05-29 12:58 | NUR ---
Pt seen at bedside for PO trials and diet upgrade. Pt without NC O2 during f/u. He is A&O x3. Pt shows improved alertness during f/u and increased participation. Pt given therapeutic trials of pureed solids and thin liquids at [facility]. Pt presents with severely increased oral preparation time mastication time of pureed solids. Pt has reduced labial closure on a spoon with impaired clearance. Per bolus presentation, pt was observed to use 2-3 swallows with mild-moderate oral residue, however limited pocketing was noticed this date, and pt independently used a liquid wash to clear oral residue. Pt tolerated pureed solids x6 with mild cueing to improve oral clearance with adequate respiratory support and stable respiratory rate during and after swallows.
[2021-05-29 15:10] VITALS: BP 103/74
--- NOTE | 2021-05-29 16:00 | NUR ---
PT IN BED. NO DISTRESS NOTED. CALL LIGHT WITHIN REACH.
--- NOTE | 2021-05-29 19:20 | NUR ---
PATIENT IS AWAKE ALERT TO SELF, PLEASANT, DENEIS PAIN. O2 2L N/C IN PLACE. ON TELEMETRY AFIB. HR IRR. SEMI-FOWLERS POSITION. NO ACUTE DISTRESS OBSERVED. FALL PRECAUTIONS MAINTAINED. ASSESSMENT COMPLETED AND CHARTED. BED IN LOW POSITION. CALL LIGHT WITHIN REACH.
[2021-05-29 19:38] VITALS: BP 101/72
--- NOTE | 2021-05-30 | NUR ---
PATIENT RESTING QUIETLY. NO ACUTE DISTRESS. BED IN LOW POSITION. CALL LIGHT WITHIN REACH.
[2021-05-30 00:35] VITALS: BP 108/73
[2021-05-30 03:00] VITALS: BP 126/60
[2021-05-30 04:00] VITALS: BP 120/61
--- NOTE | 2021-05-30 04:28 | NUR ---
RESTING QUIETLY. NO ACUTE DISTRESS NOTED. BED IN LOW POSITION. CALL LIGHT WITHIN REACH.
[2021-05-30 04:30] VITALS: BP 109/72
[2021-05-30 07:18] LABS: HEMOGLOBIN 14.4 g/dl (14.0-18.0); IMMATURE GRANULOCYTES 0.1 % (0.0-5.0); MEAN CELL VOLUME 91.3 fL CALC (80.0-100.0); MEAN CORPUSCULAR HGB 29.2 pG CALC (26.0-32.0); NEUT# 5.67 thou/uL (1.82-7.42); RED BLOOD COUNT 4.93 mill/uL (4.70-6.10); RED CELL DISTRI WIDTH 14.5 % (11.5-15.5)
[2021-05-30 07:43] LABS: ALBUMIN 2.6 g/dL (3.2-5.0); ALKALINE PHOSPHATASE 46 u/l (38-126); ANION GAP 8 (6-22 (CALC)); BILIRUBIN, TOTAL 0.3 mg/dL (0.0-1.4); BUN 16 mg/dL (8-23); BUN/CREATININE RATIO 30 (12-20 (CALC)); C-REACTIVE PROTEIN 1.8 mg/dL (0-0.9); CARBON DIOXIDE 27 mmol/l (22-30); CHLORIDE 105 mmol/l (95-108); CREATININE 0.5 mg/dL (0.7-1.3); GFR > 60 ML/MIN (>=60 (CALC)); GFR FOR AFR.AMER. > 60 ML/MIN (>=60 (CALC)); POTASSIUM 3.7 mmol/l (3.5-5.1); SGOT/AST 61 u/l (19-48); SODIUM 136 mmol/l (137-146); TOTAL PROTEIN 5.5 g/dL (6.3-8.2)
--- NOTE | 2021-05-30 07:55 | NUR ---
PT IN BED. ALERT TO SELF. ASSESSMENT AND VITALS DONE. S1 AND S2 HEARD. LUNGS SOUNDS CLEAR BILATERALLY. COUGH PRODUCTIVE. BOWELS ACTIVE IN ALL 4 QUADS. SKIN COOL AND DRY. PT PEDAL PULSES STRONG BILATERALLY. STOUT DRAINING VIA GRAVITY.PT ON 2L OF O2. STATING BETWEEN 92-93. PT WAS NOT WEARING OXYGEN CANNULA IT WAS AROUND HIS HEAD. TOOK HIS 02 AND IT WAS AT 92. SKIN INTACT AROUND STOUT. IV PATENT AND HEALTHY. CALL LIGHT WITHIN REACH
--- NOTE | 2021-05-30 07:57 | NUR ---
[facility]LD PTS [facility] PT HAD LBP AT 85/64. NOTIFIED Jerad LAWSON. SARAH.
[2021-05-30 08:00] VITALS: BP 85/64
--- NOTE | 2021-05-30 10:46 | NUR ---
PT NOTE Patient was supine as entered room. patient was not feeling up to participate in therapy this morning. Tray table and call shaw by patient side asexited room
--- NOTE | 2021-05-30 11:57 | NUR ---
PT IN BED. NO DISTRESS NOTED. CALL LIGHT WITHIN REACH.
[2021-05-30] MEDS ORDERED: OXY1 (13:09)
[2021-05-30] MEDS ORDERED: LEVAQUIN750 M1 PO (13:09)
[2021-05-30 14:36] VITALS: BP 116/64
--- NOTE | 2021-05-30 16:01 | NUR ---
PT WAITING TO BE DISCHARGED. NO DISTRESS NOTED. CALL LIGHT WITHIN REACH.
--- NOTE | 2021-05-30 16:20 | NUR ---
Discharge instructions given. Patient verbalizes understanding of same. Discharged in stable condition via Medical Transport to [facility] with staff. All belongings sent with pt.
--- NOTE | 2021-05-30 16:30 | NUR ---
CALLED IN REPORT TO VILMA AT [facility].
== END 2021-05-30 16:20 | DRG 177 ==
LOC: ED 10:08 → MS2 13:03
PROVIDERS: Internal Medicine; Nurse Practitioner; ADMIT Internal Medicine; ATTEND Internal Medicine
PROC: 0T9B70Z Drainage of Bladder with Drainage Device, Via Natural or Artificial Opening (ICD-10-PCS; principal; 2021-05-25)
PROC: XW033E5 Introduction of Remdesivir Anti-infective into Peripheral Vein, Percutaneous Approach, New Technology Group 5 (ICD-10-PCS; 2021-05-25)
DX: U07.1 COVID-19 (principal); J18.9 Pneumonia, unspecified organism; E87.2 Acidosis; F03.90 Unspecified dementia, unspecified severity, without behavioral disturbance, psychotic disturbance, mood disturbance, and anxiety; I50.9 Heart failure, unspecified; I11.0 Hypertensive heart disease with heart failure; R09.02 Hypoxemia; E86.0 Dehydration; F32.9 Major depressive disorder, single episode, unspecified; M19.90 Unspecified osteoarthritis, unspecified site; R52 Pain, unspecified
CPT/HCPCS: G0378; J1650